=== PATIENT | female | born 1950 | race Caucasian/White ===

== ENCOUNTER 2018-12-31 18:04 | Inpatient (IN) | payer OTHER ==
[~2018-12-31] VITALS: Ht 172.7 cm; Wt 72.3 kg
[2018-12-31 22:05] VITALS: BP 166/75
[2019-01-01] MEDS ORDERED: ABILIFY 2 MG2 M1 PO (01:58)
[2019-01-01] MEDS ORDERED: WELLBUTRIN XL300 MG PO (01:59)
[2019-01-01] MEDS ORDERED: CLONAZEPAM 1 MG1 M1 PO (01:59)
[2019-01-01] MEDS ORDERED: ADDERALL 5 MG TA5 M1 PO (02:00)
[2019-01-01] MEDS ORDERED: HYDROXYZINE HCL25 M1 PO (02:00)
[2019-01-01] MEDS ORDERED: SERTRALINE HCL50 MG PO (02:01)
--- NOTE | 2019-01-01 02:21 | NUR ---
Admission Note: Patient admitted to room 526A under the care of Dr. Estrada at 2004 on 12/31/18. Patient arrived from [facility] by EMS. Patient had an attempted overdose on prescription pills on 12/28/18. Patient had taken multiple prescribed medications in an attempt to commit suicide. Patient stabilized at [facility] prior to transfer. Patient was positive for amphetamines and alcohol. Patient denies SI at this time. Patient stated that she was upset because she had an argument with her boyfriend of 1.5 years. Plan was to move in with him at his home but he had changed his mind. Patient reports that she currently lives with her son. Patient also has a daughter that is an active part of her life. Patient reports that she lost her approximately 2 years ago suddenly. Patient initially denied having any previous mental health facility admissions. Patient then stated that she had one at [facility]. When asked why she was admitted at that time, she started to discuss how the staff had given her an injection which caused her to fall. Patient did deny any previous suicide attempts, however, medical record states that she has had 2 different attempts over the last 2 years. Both of which were by overdose. Patient denies any smoking or drug use. Patient alcohol serum was 16 at [facility] upon admission on 12/28/18. When patient was asked how often she drank, patient stated that she will have a glass of wine about once a month when she goes out to dinner. Patient arrived with a gown that she was wearing when she originally was taken to [facility] after overdose. Gown was cut due to EMS needing access for assessment. Gown also smells strongly of alcohol. Patient notified that she had alcohol in her system when she originally went to the ER. Patient stated she did have a mata colada with Raymundo, her boyfriend, the night before she was taken to the hospital. Patient then stated that she had a glass of wine one week before attempted overdose. Patient then stated that she had a peach cocktail the morning that she went to the hospital. Unknown of how much patient truly drinks alcohol. Med list reviewed with patient. NKDA. Patient reports that she is prescribed Adderall because her "mind goes round and round and it helps calm things down". Admission orders and medication changes were made by Dr. Estrada. Patient introduced to staff and peers. Patient tearful, flat affect. Patient oriented to unit and unit routine. Patient called her daughter to notify her of safe arrival and to give her the passcode. Patient on Regular diet. Full code status. Patient ate 100% snack. Patient reports excess thirst and has been provided ice water. Patient continent of bowel and bladder. Patient up ad bryant with no assistive devices. Denies any falls over the last 6 months. Skin is warm, dry and intact. Patient does have a bruise to the left side of her sternum. Patient contracted for safety with this nurse. Patient reports that she feels really stupid and is afraid she lost her boyfriend, Raymundo. Patient is hyperverbal at times. Some answers provided seemed exaggerated to an extent. Denies pain or discomfort. Patient was able to retire to her bed and has been resting quietly.
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
--- NOTE | 2019-01-01 16:16 | NUR ---
YOVANNY left a vocimail to schedule family meeting. YOVANNY provided contact information and asked to return phone call.
[2019-01-01 19:42] VITALS: BP 168/73
--- NOTE | 2019-01-01 23:00 | NUR ---
Care assumed of patient at 1915: Patient alert and oriented x4. Patient pleasant and cooperative. Patient presents with flat affect, depressed mood. Patient denies SI/HI/AH/VH. Patient reports that she made an "impulse decision" when she attempted to overdose on pills. Patient interacting well with other staff and peers. Patient reports that she is worried about the relationship with her boyfriend. Patient reports being worried about growing older and being lonely. Patient states that she feels like she is "settling" even though she is not truly happy. Patient reports that she will be starting therapy 3x/week. Discussed healthy coping mechanisms. Discussed journaling. Patient reports that she doesn't have anybody that she can talk to when she is at home and that has been hard on her. Patient requested PRN Atarax this evening to assist her go to sleep. Patient has been resting quietly since.
[2019-01-02 15:34] VITALS: BP 123/54
[2019-01-02 19:46] VITALS: BP 149/68
--- NOTE | 2019-01-02 20:40 | NUR ---
ASSUMED CARE OF THE PT AT 191 PM. ALERT ET ORIENTED X 3. MAKES NEEDS KNOWN. WALKS WITH A STEADY GAIT. HEART RATE REGULAR, LUNGS CLEAR BILATERALLY, RESP., EVEN, AND UNLABORED. +BS HEARD IN ALL 4 QUADRANTS. ABD SOFT ET NONTENDOR. +PP BILATERALLY. RATES HER ANXIETY A 8/10 AND HER DEPRESSION A 0/10. DENIES SI AND HI CURRENTLY. DENIES A/V HALLUNICATIONS. REMAINS ON 12 MINUTE CHECKS FOR HER SAFETY.
--- NOTE | 2019-01-03 03:06 | NUR ---
THE PT HAS BEEN SLEEPING MOST OF THE NIGHT SO FAR, SHE DID GET UP ONCE TO GO TO THE BATHROOM. DENIES PAIN AT THIS TIME. REMAINS ON 12 MINUTE CHECKS FOR THE PT'S SAFETY.
--- NOTE | 2019-01-03 06:10 | NUR ---
THE PT SLEPT 8 HOURS LAST NIGHT.
[2019-01-03 08:01] VITALS: BP 135/90
[2019-01-03 11:44] VITALS: BP 135/90
[2019-01-03 12:35] VITALS: BP 135/90
--- NOTE | 2019-01-03 13:58 | NUR ---
PATIENT DISCHARGED AT 1250 HOME. TRANSPORTED BY DAUGHTER FANNY WHO DROVE. PATIENT REVIEWED APPOINTMENTS AND INSTRUCTIONS WITH NURSE PRIOR TO DISCHARGE AND STATED UNDERSTOOD. BELONGINGS TAKEN WITH HER AND DAUGHTER BROUGHT PURSE AND CLOTHES TO HER. FILLED OUT SURVEY AND GIVEN SUICIDE HOT LINE FOR SUPPORT IF NEEDED. COPIES OF DOCUMENTATION - APPOINTMENT COMMITTMENTS AND MEDICATIONS GIVEN ALONG WITH HOSPITAL STAY HISTORY WHILE HERE.
--- NOTE | 2019-01-03 15:05 | NUR ---
Patient Name: MARCELL MENDOZA Admission Date: 12/31/18 DISCHARGE PLAN: Pt will d/c home with her son. Care Assessment: Pt was assessed by Dr. Estrada, and diagnosed with Major Depressive Disorder Level II Assessment: None Transportation: Pt was transported home with her daughter Special Instructions/Notes: Dr. Estrada recommended that continue care through [facility] program. Pt will follow-up with her primary doctor. DISCHARGE TO FACILITY: Facility: Phone: Fax: Address: Contact Name: Phone: PCP: JANINE Psychiatrist: [facility] on January 15, 2019 at 11:00am.
--- NOTE | 2019-01-03 22:09 | H ---
[facility] [place] [address] HISTORY AND PHYSICAL Name: MARCELL MENDOZA Room #: 526A-A [facility] IN ..#: [id number] Admission: 12/31/18 ������������������ Attend Phys: Stephen Estrada, Discharge: 01/03/19 ������������������ Date of : 50 Report #: [id number] THIS REPORT FOR: //name// CC: Stephen ALEGRIA unknown DATE OF SERVICE: 01/01/2019 ATTENDING PHYSICIAN: Stephen Estrada D.O. SCRIPT GIRL: Adebayo Hernández M.D. REASON FOR ADMISSION: Intentional overdose to commit suicide. SOURCES OF INFORMATION: Records from [facility] where the patient was medically admitted from 12/29 to 12/31, interview with the patient today in my office in the Geriatric Psychiatry Unit. HISTORY OF PRESENT ILLNESS: This is a 68-year-old tall female, , currently dealing with a breakup of a relationship with a boyfriend named Lindsay. The patient was brought on 12/29 by ambulance to the Emergency Department at [facility] for altered mental status following an intentional drug overdose. The patient was found shortly before hospital arrival by her boyfriend. She reports she took "all the pills I had". She reports she was trying to kill herself. She did vomit with the EMS. The patient denies smoking, alcohol or drug use, so this was a sober time. In the Emergency Room, she had a coarse cough. She was somnolent, arouses to voice, and follows commands with all extremities. Motor strength is grossly intact. Apparently, her bottles for Wellbutrin-XL refilled on 12/06, Sertraline 12/12 and 12/14. She was given O2 for mild hypoxia. Her THC was present for amphetamines in her urine, otherwise negative. LABORATORY DATA: On 12/29, white count 7.27, H and H 12.3 and 37; and platelet count 269. CMP: Sodium 141, potassium 3.9, chloride 111, bicarbonate 20, anion gap 10, calcium 8.6, glucose 103, total protein 6.7, albumin 4.0, alkaline phosphatase 91, ALT 17, AST 25, BUN 20, creatinine 1.1, EGFR non- 49. Urinalysis is negative. Magnesium is 2.2. Acetaminophen is less than 10. Salicylate is less than 1. ABG showed pO2 of 64, pCO2 of 36, pH of 7.33, and bicarbonate of 19 and this is on room air. Additional information from the telemedicine psychiatric consult. PAST MEDICAL HISTORY: Depression, anxiety, history of suicidality intermittently over the last 2 years since her in October 2016. Her overdose included hydroxyzine, Wellbutrin, clonazepam, Adderall, and Abilify. I believe she took the pills around 8:30 a.m. The patient reported that her boyfriend changed his mind about moving in together. Side issues including work [address] [address] HISTORY AND PHYSICAL Name: MARCELL MENDOZA Room #: 526A-A [facility] IN [facility]#: [id number] Admission: 12/31/18 ������������������ Attend Phys: Stephen Estrada, DO Discharge: 01/03/19 ������������������ Date of : 50 Report #: [id number] stress, financial difficulties and being overwhelmed in general by family, feels that she is a burden to her children. SOCIAL HISTORY: The patient reported she has 2 adult children, son and daughter. about 2 years ago after complications from prostatectomy. She reported to [facility], she had mild "suicide attempts" immediately after Chemo . That is when she was hospitalized at [facility] for example. Has reportedly an attempt by overdose. She recently had two sessions with a therapist, Dr. Doyle, but did not feel she clicked with her, so she has not returned. The patient reports she was dating Shane Montoya, year and half. She and [place] were working on moving in. He was well off and decided not to move in together. She stated she already sold her house. The patient reports that the overdose was "I let him know how much he hurt me". She denies access to weapons. She reports being born in [place], [place], degree from [employer]. She is glad she is alive. She reports her in 10/13/2016. She has a daughter, Julianne Chavez in [place]. Son, Jevon, is a civil process server, and Jevon having 2 sons, Rashad and Sharan. Her son is 42. She had a brother and 2 sisters. Her mother is alive, 89 years old. Her father of sepsis 30 years ago. 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 It was her second that was . She reports being for 26 and 24 years a piece, so she got when she was 18. REVIEW OF SYSTEMS: Denied nausea, vomiting, fever, diarrhea or chills, chest pain, shortness of breath, exertional dyspnea. Otherwise, a 10-point review of systems was denied. Musculoskeletal: Normal gait and station MENTAL STATUS EXAMINATION: This is a well-developed, fairly nourished female appearing stated age. Attention intact. Concentration is intact. Speech is normal, rate, rhythm and tone. Thought process linear and goal directed. Mood and affect congruent, constricted. Denied SI, AHI. Denied helplessness, hopelessness. Memory not formally tested. Insight limited. Judgment limited. Fund of knowledge is above average. FORMULATION: A 68-year-old female admitted following a suicide attempt by overdose. DIAGNOSES: Adjustment disorder with disturbance of mood and conduct, unspecified depression, borderline personality traits. PLAN: Evaluate, stabilize, and obtain collateral. No Wellbutrin or clonazepam. CURRENT MEDICATIONS IN THE HOSPITAL: Include sertraline 50 mg daily and aripiprazole 2 mg daily. PLAN: Increase aripiprazole to 5 mg daily. 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 She is aware of the situation. It will be discussed with the patient. PHP versus other. ESTIMATED LENGTH OF STAY: 3-5 days. Time spent on interview, review of records, and coordination of care at least 60 minutes. STRENGTHS: She is insured. She has some supportive family. WEAKNESSES: Suicide attempt and advancing age. ��������������������������������������������� <ELECTRONICALLY SIGNED> ���������������������������������������� By: Stephen Estrada, ��������������������������������������������� 01/03/19 2209 1547 1841 Stephen Estrada, /nt
--- NOTE | 2019-01-03 22:32 | D ---
[facility] [place] [address] [place] [address] DISCHARGE SUMMARY Name: MARCELL MENDOZA Room #: 526A-A [facility] IN ..#: [id number] Admission: 12/31/18 ������������������ Attend Phys: Stephen Estrada DO Discharge: 01/03/19 ������������������ Date of : 50 Report #: [id number] THIS REPORT FOR: //name// CC: Stephen Estrada [facility] unknown DATE OF SERVICE: 01/03/2019 ATTENDING PHYSICIAN: Stephen Estrada DO. OCCUPATIONAL HEALTH RN: Adebayo Hernández MD. DISCHARGE DIAGNOSES: Adjustment disorder with disturbance of emotions and conduct, resolved. Major depressive disorder, recurrent; degree of borderline personality traits as well, morbid medical diagnoses are fairly few and include hypertension. DISCHARGE PLAN: She is discharged to her private residence. Her daughter is picking her up. She sees LEONIDES Jin at [facility]. In addition, I have recommended PHP program for her. She is scheduled to have an intake at [facility] on 01/15/2019. The patient was given the suicide prevention Lifeline. She was strictly given a 15-day supply of her medications due to her recent history of overdose. No one else labs done as they were done at [facility]. REASON FOR ADMISSION: As follows: A 68-year-old female admitted to [facility] for polydrug overdose, was obtunded, did not require intubation, was kept there 2 days. HOSPITAL COURSE: The patient was admitted to Geriatric Psychiatry Unit. The patient describes that this was essentially an attention getting retaliation overdose for her boyfriend, Lindsay, breaking up with her. The seriousness of the risks the patient undertook were reviewed including the possibility of with an overdose. The patient at this time has a number of protective factors, namely she lives with her son. He has two adult sons. She also has daughter with children in the area. The patient apparently has a part-time job as well at at a [employer] in [facility]. There were no restraints required during hospitalization. DISCHARGE MEDICATIONS: Streamlined to make the regimen safer, aripiprazole 2 mg p.o. daily for augmentation of depression, sertraline 50 mg p.o. daily for depression, hydroxyzine 25 mg p.o. b.i.d. p.r.n. and 50 mg at bedtime for sleep. Bupropion and clonazepam were discontinued as well as Adderall. I counseled the patient that particularly the controlled substances are not a priority issue for her at this point and should not be re-entertained till she has a [facility] [address] [place] [address] DISCHARGE SUMMARY Name: MENDOZAMARCELL Room #: 526A-A [facility] IN M.R.#: [id number] Admission: 12/31/18 ������������������ Attend Phys: Stephen Estrada DO Discharge: 01/03/19 ������������������ Date of : 50 Report #: [id number] significant period of stability in my opinion. During hospitalization, I did speak with her outpatient provider who was unaware of her hospitalization and overdose. PHYSICAL EXAMINATION: VITAL SIGNS: At time of discharge are as follows: Temperature 36.5, pulse 53, respirations 16, BP 135/90. Not on oxygen. GENERAL: This is a well-developed, fairly nourished female appearing stated age. MENTAL STATUS EXAMINATION: Attention intact. Concentration intact. Speech is normal, rate, rhythm and tone. Thought process linear and goal directed. Thought content, focused on discharge. No psychomotor agitation or psychomotor retardation. Denied auditory, visual, or tactile hallucinations. Denied suicidal intent or plan. Denied hopelessness, helplessness. Denied homicidal intent or plan. Memory not formally tested today. Insight fair. Judgment fair to limited. Fund of knowledge at least average. Prognosis for this patient is fair to guarded, obviously better if she follows through with programming including psychotherapy, which she has been resistant. ��������������������������������������������� <ELECTRONICALLY SIGNED> ���������������������������������������� By: Stephen Estrada DO ��������������������������������������������� 01/03/19 2232 1544 1634 Stephen Estrada DO /nt
== END 2019-01-03 14:04 | disposition home or self-care (01) | DRG 885 ==
LOC: SBH 18:04
PROVIDERS: ADMIT Psychiatry & Neurology Psychiatry
DX: F33.9 Major depressive disorder, recurrent, unspecified (principal); T14.91XA Suicide attempt, initial encounter; F41.9 Anxiety disorder, unspecified; F43.20 Adjustment disorder, unspecified; Z73.1 Type A behavior pattern; Z79.899 Other long term (current) drug therapy
CPT/HCPCS: 10880

== ENCOUNTER 2019-01-10 14:30 | Emergency (ER) | payer OTHER ==
[~2019-01-10] VITALS: Ht 172.7 cm; Wt 68.0 kg
[~2019-01-10 14:30] MED LIST: ABILIFY 2 MG2 M1 PO; ADDERALL 5 MG TA5 M1 PO; CLONAZEPAM 1 MG1 M1 PO; HYDROXYZINE HCL25 M1 PO; SERTRALINE HCL50 MG PO; WELLBUTRIN XL300 MG PO
[2019-01-10] MEDS ORDERED: VISTARIL 25 MG25 M1 PO (14:43)
[2019-01-10 14:50] LABS: ABSOLUTE NEUTROPHILS 9.8 thou/uL (1.4-8.2); BASOPHILS 0.6 % (0.0-2.0); EOSINOPHILS 0.7 % (0.0-3.0); HEMATOCRIT 37.1 % (37.0-47.0); HEMOGLOBIN 12.5 gm/dL (12.0-15.0); LYMPHOCYTES 11.6 % (24.0-44.0); MCH 28.7 pg (26.0-34.0); MCHC 33.8 g/dL (28.0-37.0); MONOCYTES 2.6 % (1.0-8.0); PLATELET COUNT 318 thou/uL (150-400); POLYS 84.5 % (36.0-66.0); RBC 4.36 mil/uL (4.20-5.00); RDW 14.2 % (10.5-14.5); WBC 11.6 thou/uL (4.0-11.0)
[2019-01-10 14:55] LABS: ANION GAP 9 mmol/L (7-16); BUN 22 mg/dL (7-18); CALCIUM 9.8 mg/dL (8.5-10.1); CHLORIDE 105 mmol/L (98-107); CO2 26 mmol/L (21-32); CREATININE 0.9 mg/dL (0.6-1.0); GLUCOSE 188 mg/dL (74-106); POTASSIUM 4.3 mmol/L (3.5-5.1); SODIUM 140 mmol/L (136-145)
[2019-01-10 15:05] LABS: ALBUMIN 3.8 g/dL (3.4-5.0); SGOT 20 U/L (15-37); SGPT 21 U/L (30-65); TOTAL BILIRUBIN 0.4 mg/dL (<0.1-1.0); TOTAL PROTEIN 7.5 g/dL (6.4-8.2); TROPONIN-I <0.06 ng/mL (<0.06)
[2019-01-10 16:08] LABS: URINE BILIRUBIN NEGATIVE (Negative); URINE BLOOD TRACE (Negative); URINE CLARITY CLEAR; URINE COLOR YELLOW; URINE GLUCOSE-RANDOM* 1+ (Negative); URINE KETONES NEGATIVE (Negative); URINE NITRITE-REFLEX NEGATIVE (Negative); URINE PROTEIN (DIPSTICK) TRACE (Negative); URINE SPECIFIC GRAVITY 1.025 (1.005-1.035); URINE UROBILINOGEN 0.2 E.U./dl (0.2-1.0)
[2019-01-10 16:09] LABS: URINE LEUKOCYTES-REFLEX 1+ (Negative)
[2019-01-10 16:16] LABS: BACTERIA-REFLEX 1-9 Few /HPF (None Seen); CASTS None Seen /LPF (None Seen); CRYSTALS None Seen /LPF (None Seen); MUCUS 4-6 Moderate strn/LPF (None Seen); SQUAMOUS 0-3 Few /LPF (0-3); URINE RBC 3-10 Few /HPF (0-2); URINE WBC-REFLEX 6-15 Few /HPF (0-5)
[2019-01-10 18:14] VITALS: BP 172/85
--- NOTE | 2019-01-11 08:09 | EKG ---
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: bonnie : 1950 Requested By: Jess Briceño Order Number: [id number] MD: Dale Rodriguez Measurements Intervals [place] Rate: 64 P: 39 CO: 136 QRS: 6 QRSD: 113 T: 30 QT: 430 QTc: 444 Interpretive Statements Sinus rhythm RSR' in V1 or V2, probably normal variant No previous ECG available for comparison Electronically Signed On 01-11-2019 8:09:04 CDT by Dale Rodriguez [email or web address] <ELECTRONICALLY SIGNED> By: Dale Rodriguez MD, [facility] 01/11/19 0809 1430 1430 Dale Rodriguez MD, FACC /EPI
== END 2019-01-10 18:14 | disposition home or self-care (01) ==
LOC: ER 14:30
PROVIDERS: Physician Assistant
DX: F32.9 Major depressive disorder, single episode, unspecified (principal); F41.9 Anxiety disorder, unspecified; R00.1 Bradycardia, unspecified